=== PATIENT | female | born 1975 | race Two or more races ===

== ENCOUNTER → 2024-04-24 | Outpatient (CLI) | payer MEDICAID, SELFPAY ==
--- NOTE | 2024-04-24 11:00 | XR_ITS ---
Examination: Breast ultrasound, unilateral, right Date and time of exam: April 24, 2024 1040 hours INDICATIONS: Mammogram January 05, 2024 6 mm focal asymmetry upper outer right breast Technique: Real-time lara scale ultrasonographic imaging performed right breast including all 4 quadrants as well as nipple retroareolar and axillary region. Findings: No cystic or solid mass IMPRESSION: BI-RADS Category 1: Negative study
--- NOTE | 2024-04-24 11:30 | XR_ITS ---
Examination: Diagnostic digital mammography, unilateral, right Computer aided detection 3-D breast Tomosynthesis, unilateral Date and time of exam: April 24, 2019 5:11 AM INDICATIONS: Mammogram January 05, 2024 6 mm focal asymmetry outer right breast Technique: Nonmagnified MLO, CC views of the right breast have been obtained, reconstructed from 3-D Tomosynthesis images. R2 computer aided detection program utilized for evaluation of suspicious masses and/or abnormal calcifications. 3-D Tomosynthesis images obtained. Findings: Scattered areas of fibroglandular density No suspicious mass on the spot compression views is demonstrated Impression: BI-RADS category 2: Benign findings Return to yearly follow-up mammography
== END | disposition home or self-care (01) ==
PROVIDERS: PCP Family Medicine; Referring Provider Family Medicine; Visit Provider Family Medicine
DX: R92.321 Mammographic fibroglandular density, right breast (principal); N64.89 Other specified disorders of breast
CPT/HCPCS: 76641; 77061; 77065; G0279

== ENCOUNTER 2024-05-02 07:55 | Day surgery (SDC) | payer MEDICAID, SELFPAY ==
[2024-04-28 13:28] VITALS: BMI 44.5
[2024-05-02] VITALS (17 sets, daily range): BP systolic 112–211; BP diastolic 57–109; PULSE 51–104; RESP 12–25; TEMP 36.2–36.6; O2SAT 94–100; BMI 44.5
[2024-05-02] MEDS: SODIUM CHLORIDE 0.9% 100 ML IV (10:21)
[2024-05-02] MEDS: fentaNYL CIT INJ 50 mCg/ML AMP 2ML (ASD USE ONLY) IV (10:28)
[2024-05-02] MEDS: MIDAZOLAM INJ 1 MG/ML VIAL 2 ML (ASD USE ONLY) 2 MG IV (10:28)
[2024-05-02] MEDS: DiphenhydrAMINE INJ 50 MG/ML VIAL 25 MG IV (10:29)
== END 2024-05-02 11:23 | disposition home or self-care (01) ==
PROVIDERS: PCP Family Medicine; Referring Provider Internal Medicine Gastroenterology; Visit Provider Internal Medicine Gastroenterology
PROC: (CPT 43239; principal; 2024-05-02 09:30)
PROC: 0DBE8ZX Excision of Large Intestine, Via Natural or Artificial Opening Endoscopic, Diagnostic (ICD-10-PCS; CPT 45380; 2024-05-02 09:30)
DX: K64.1 Second degree hemorrhoids (principal); E66.01 Morbid (severe) obesity due to excess calories; Z68.42 Body mass index [BMI] 45.0-49.9, adult; K29.50 Unspecified chronic gastritis without bleeding; K31.89 Other diseases of stomach and duodenum
CPT/HCPCS: 45380; 81025; A4217; A4649; J1200; J2250; J3010; J7050

== ENCOUNTER 2024-06-15 09:40 | Emergency (ER) | payer MEDICAID, SELFPAY ==
--- NOTE | 2024-06-15 | XR_ITS ---
Examination: MRI brain without intravenous contrast. Date and time of exam: June 15, 2024 at 1947 hours INDICATIONS: Onset dizziness and difficulty walking today weakness Technique: Multiple axial and sagittal images of the brain obtained. Siemens high-resolution 1.5 Roxanne short bore scanners utilized. Sagittal sections, T1-weighted, TR 500, TE 14, are performed. Axial sections proton-density and T2-weighted have been obtained. Inversion recovery axial images, TR 9, 260, TE 111, TI 2500. Diffusion weighted images, axial sections, TR 4800, TE 128, B value 1000 Axial sections, ADC map, TR 4800, TE 128 Findings: Enlargement of the sella turcica is not present. The optic chiasm and infundibular are not remarkable. Prepontine and interpeduncular cisterns are not enlarged. There is no localized enlargement of the medulla or danielito. Fourth ventricle and cerebellar tonsils appear normal in position. No subacute area of hemorrhage density is seen. Mass in the cerebellopontine angle region is not evident. Globes symmetrical. Orbital musculature including medial lateral rectus muscles do not exhibit abnormality. Diffusion-weighted images demonstrate no focus of restricted effusion. Increased white matter signal not seen Mass effect upon the ventricular system is not identified. Impression: Negative for acute hemorrhage, mass effect or midline shift. No acute infarct No MR findings diagnostic for demyelinating disease
[2024-06-15 09:41] VITALS: BMI 43.9
[2024-06-15 10:29] VITALS: BP 154/84; PULSE 57; RESP 18; TEMP 36.8; O2SAT 98; BMI 43.9
--- NOTE | 2024-06-15 10:40 | XR_ITS ---
Examination: CT brain head without contrast. 2-D sagittal coronal reconstructions Date and time of exam:June 15, 2024 1048 hours INDICATIONS: Dizziness high blood pressure today CTDI: vol (mGy):52.5 DLP: (mGycm):1039 Technique: Multiple CT axial sections of the brain have been obtained, 5 mm slice thickness. Contrast has not been administered. 2-D sagittal, coronal reconstructions have been obtained Low dose protocols were performed. One or more of the following dose reduction techniques were used; automated exposure control, adjustment of the mA and/or KV according to patient size, use of iterative reconstruction technique. Findings: No significant ventricular enlargement. Intra-axial or extra-axial hemorrhage density is not seen. No mass effect or midline shift Basal cisterns are not remarkable. Fourth ventricle is midline. Cranial vault intact. Impression: Negative for acute hemorrhage, mass effect or midline shift Advise clinical correlation and follow-up accordingly
--- NOTE | 2024-06-15 10:40 | XR_ITS ---
Examination: PA chest single view TECHNIQUE: Upright PA chest single view Exam date and time: June 15, 2024 1058 hours INDICATIONS: High blood pressure dizziness today FINDINGS: Mild enlargement left ventricle. No pneumonia or pulmonary edema. The osseous structures are intact IMPRESSION: Mild enlargement left ventricle
--- NOTE | 2024-06-15 10:41 | PD.EDRME ---
Rapid Medical Screening Exam RME Arrival date/time: 06/15/24 09:40 48-year-old female presents to the emergency department complaints of dizziness and chest pressure x 1 day. I have greeted and performed a focused initial assessment of this patient. Initial appropriate labs ordered at this time. A comprehensive ED assessment and evaluation of the patient and analysis of all test and completion of medical decision making process will be conducted by additional ED provider. Chief Complaint: Dizziness Time Seen by Provider: 06/15/24 10:04 Vital signs: Vital Signs Temperature 98.3 F 06/15/24 10:29 Pulse Rate 57 L 06/15/24 10:29 Respiratory Rate 18 06/15/24 10:29 Blood Pressure 154/84 H 06/15/24 10:29 Pulse Oximetry (%) 98 06/15/24 10:29 Oxygen Delivery Method Room Air 06/15/24 10:29
[2024-06-15 11:11] LABS: Basophils % (Auto) 0 % (0-2.5); Eosinophils # (Auto) 0.1 Thou/mm3 (0.0-0.5); Eosinophils % (Auto) 2 % (0-10); Hematocrit 40.7 % (36.0-46.0); Hemoglobin 14.2 g/dL (12.0-16.0); Immature Granulocytes % (Auto) 0 % (0-0); Immature Granulocytes Auto 0.02 Thou/mm3 (0.00-0.00); Lymphocytes # (Auto) 1.9 Thou/mm3 (1.0-4.8); Lymphocytes % (Auto) 35 % (10-50); Mean Corpuscular HGB Conc 34.9 g/dl (31.0-37.0); Mean Corpuscular Hemoglobin 30.4 pg (25.0-35.0); Mean Corpuscular Volume 87 fL (80-100); Monocytes # (Auto) 0.3 Thou/mm3 (0.0-0.8); Monocytes % (Auto) 6 % (0-12); Neutrophils # (Auto) 3.1 Thou/mm3 (1.8-7.7); Neutrophils % (Auto) 57 % (37-80); Nucleated Red Blood Cell % 0 /100 WBC (0); Platelet Count 238 Thou/mm3 (140-440); RDW Standard Deviation 39.8 fL (36.4-46.3); Red Blood Count 4.67 Miln/mm3 (4.00-5.20); White Blood Count 5.5 Thou/mm3 (3.6-11.0)
[2024-06-15 11:22] LABS: Prothrombin Time 10.9 Seconds (9.0-12.2)
[2024-06-15] MEDS: MECLIZINE HCL 25 MG TABLET PO (11:26)
[2024-06-15 11:30] LABS: Alanine Aminotransferase 34 U/L (10-49); Albumin, Serum 4.6 gm/dL (3.5-5.0); Albumin/Globulin Ratio 1.7 (1.2-2.2); Alkaline Phosphatase 94 U/L (46-116); Anion Gap 9 (7-16); Aspartate Amino Transferase 22 U/L (0-34); BUN/Creatinine Ratio 16 Ratio (12-20); Bilirubin,Total 1.2 mg/dL (0.3-1.2); Blood Urea Nitrogen 8 mg/dL (9-23); Calcium 9.3 mg/dL (8.3-10.6); Calcium (Corrected) 9.3 mg/dL (8.5-10.1); Carbon Dioxide 29.2 mMol/L (20.0-31.0); Chloride 102 mMol/L (98-107); Creatinine (Component) 0.5 mg/dL (0.6-1.3); Estimated Creatinine Clearance 146.4 mL/min (>60); Globulin 2.7 gm/dL (2.3-3.5); Glucose 111 mg/dL (74-106); Osmolality,Calculated 278 (275-295); Potassium 3.5 mMol/L (3.4-5.1); Sodium 140 mMol/L (136-145); Total Protein 7.3 gm/dL (5.7-8.2); Troponin I < 0.002 ng/mL (0.0-0.045); eGFR > 60 See Note
[2024-06-15 20:31] VITALS: BP 151/83; PULSE 60; RESP 16; TEMP 36.9; O2SAT 98
[2024-06-15 21:41] VITALS: BP 160/64; PULSE 53; RESP 18; TEMP 36.8; O2SAT 98
[2024-06-16 00:26] LABS: Collection Type, Urine Clean Catch
--- NOTE | 2024-06-16 00:40 | EDNOTE_ITS ---
ED Dizzyness RME/HPI General Chief Complaint: Dizziness Stated Complaint: HIGH BP, DIZZY Time Seen by Provider: 06/15/24 10:04 Arrival date/time: 06/15/24 09:40 RME / HPI RME / HPI Narrative: 06/15/24 09:40 48-year-old female presents to the emergency department complaints of dizziness and chest pressure x 1 day. I have greeted and performed a focused initial assessment of this patient. Initial appropriate labs ordered at this time. A comprehensive ED assessment and evaluation of the patient and analysis of all test and completion of medical decision making process will be conducted by additional ED provider. Dr. Fowler?s Main ED Evaluation: 48yo female with a history of HTN presents to the ED for a chief complaint of dizziness x 0700. Patient states she started having dizziness while she was at work. She states it continued to get worse, reporting her legs were weak and she was unable to walk due to having significant dizziness, so she came in for evaluation. She states she was having difficulty speaking, describing it as speaking more slowly than usual. She denies any falls or injuries. She denies any other associated symptoms. No known allergies. Related Data Home Medications ?Medication ?Instructions ?Recorded ?Confirmed losartan 100 mg tablet 100 mg PO DAILY 04/28/24 cholecalciferol (vitamin D3) 50 50 mcg PO QDAY 5 05/02/24 mcg (2,000 unit) capsule hydrochlorothiazide 25 mg tablet 25 mg PO QAM 05/02/24 05/02/24 Previous Rx's ?Medication ?Instructions ?Recorded meclizine 25 mg tablet 25 mg PO BID PRN dizziness # 20 tabs 06/16/24 Allergies Allergy/AdvReac Type Severity Reaction Status Date / Time No Known Allergies Allergy Verified 06/15/24 09:42 Review of Systems Review of Systems Systems Reviewed: All systems reviewed, normal except as documented Past Medical History Past Medical History NEUROLOGIC: Negative Neurological Disorders or Seizures CARDIAC: Positive Cardiac Disorders and Hypertension; Negative Congestive Heart Failure RESPIRATORY: Positive Sleep Apnea; Negative Respiratory Disorders or Chronic Obstructive Pulmonary Disease (COPD) GASTROINTESTINAL: Positive Gastrointestinal Disorders (FATTY LIVER, ENLARGED LIVER, ENLARGED SPLEEN) GENITOURINARY: Negative Genitourinary Disorders or Renal Disease MUSCULOSKELETAL: Negative Musculoskeletal Disorders ENDOCRINE: Negative Endocrine Disorders, Diabetes Mellitus Type 1 or Diabetes Mellitus Type 2 HEMATOLOGIC: Negative Blood Disorders OTHER HISTORY: Negative Autoimmune Disease, Blood Transfusions, Anesthesia Reactions or Cancer Surgical History SURGICAL: Positive Hysterectomy Social History SMOKING STATUS: Never smoker ED Exam Narrative Physical exam: GENERAL APPEARANCE: alert and oriented x 4, well-developed, well-nourished, no acute distress VITALS: All vitals were reviewed and the pulse ox is 95% on room air, which is normal according to my interpretation. HEENT: Normocephalic, atraumatic; pupils equal, round, reactive to light; EOMI; mild left horizontal nystagmus; mucous membranes pink, moist; oropharynx clear NECK: Supple LUNGS: CTABL; no wheezes, no rales, no rhonchi HEART: Regular rate, regular rhythm; normal S1, S2; no murmurs ABDOMEN: non distended; normal BS; soft, no tenderness, no guarding, no rebound; no masses, no organomegaly, no hernia BACK: no CVA tenderness EXTREMITIES: atraumatic; no edema NEUROLOGIC: awake; alert and oriented x4; cranial nerves II-XII grossly intact; no focal sensory or motor deficits; normal [id number], normal [id number] PSYCHIATRIC: appropriate mood and affect SKIN: warm, dry, normal color; no rashes Course Quality Measures none Orders Category Date Time Status Bedside Blood Glucose NOW Care 06/15/24 10:40 Completed 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 Care 06/16/24 00:47 Completed Continuous Pulse Oximetry NOW Care 06/16/24 00:47 Completed EKG (ED ONLY) *Do not use* NOW Care 06/15/24 10:40 Completed Insert IV NOW Care 06/16/24 00:47 Completed MRI Screening NOW Care 06/15/24 15:42 Completed Consult to Neurology / Tele-Neurology Routine Cons 06/16/24 00:[address] angio stroke protocol Stat Exams 06/16/24 00:[address] head/brain wo con Stat Exams 06/15/24 10:40 Completed EKG (ED Only) Stat Exams 06/15/24 10:40 Ordered MR head/brain wo con Stat Exams 06/15/24 Completed XR chest 1V portable Stat Exams 06/15/24 10:40 Completed CBC Stat Lab 06/15/24 11:02 Completed Comprehensive Metabolic Panel Stat Lab 06/15/24 11:02 Completed Drug Screen,Urine Stat Lab 06/16/24 00:01 Completed Prothrombin Time with INR Stat Lab 06/15/24 11:02 Completed Troponin I Stat Lab 06/15/24 11:02 Completed Urinalysis Stat Lab 06/16/24 00:01 Completed Meclizine HCl [Antivert] Med 06/15/24 10:39 Discontinued 25 mg PO X1 ONE Vital Signs Vital signs: Vital Signs Temperature 98.3 F 06/15/24 10:29 Pulse Rate 57 L 06/15/24 10:29 Respiratory Rate 18 06/15/24 10:29 Blood Pressure 154/84 H 06/15/24 10:29 Pulse Oximetry (%) 98 06/15/24 10:29 Oxygen Delivery Method Room Air 06/15/24 10:29 Dizziness MDM Narrative MDM Narrative:: Scribe Attestation: 06/16/24 - Inna Hill am scribing for and in the presence of Dr. Fowler. 0043: Attempted to call Dr. Gardner, neurologist, without any success. Patient data External records reviewed:: [facility] [place] (Per chart review, patient has no relevant previous ED visits to this facility.) Clinical information provided by:: patient Social determinants that could affect healthcare access:: none Patient has the following chronic illnesses:: HTN How is presenting disease/condition affected by chronic disease/condition?: exacerbated by Evaluation data The following diagnostics were reviewed and interpreted by me:: lab results, radiology exam(s) and EKG tracing(s) Lab and/or radiology exams considered but not ordered:: none Interpretation Summary: CBC is normal, PT and INR are normal, CMP is normal, Troponin is normal, UA is unremarkable, UDS is negative, according to my interpretation. EKG done at 1041, sinus bradycardia, rate of 50, left axis deviation, no ectopy, no acute ischeia, according to my interpretation. [facility] Report Signed Patient: DIONE CHRISTOPHER Record#: [id number] Birthdate: 1975 Age/Sex: 48 / F Location: [facility] Attending Dr: Ordering Physician: Gus ([facility] [place]Ann Marie Date of Service: 06/15/24 Procedure(s): XR chest 1V portable Accession Number(s): [id number] cc: Leonardo Sheikh MD; NO PRIMARY/FAMILY,PHYSICIAN; Gus MagallanesW[facility] [place] Sanders~ Examination: PA chest single view TECHNIQUE: Upright PA chest single view Exam date and time: June 15, 2024 1058 hours INDICATIONS: High blood pressure dizziness today FINDINGS: Mild enlargement left ventricle. No pneumonia or pulmonary edema. The osseous structures are intact IMPRESSION: Mild enlargement left ventricle Dictated By: Leonardo Sheikh MD Signed By: <Electronically signed by Leonardo Sheikh MD in OV> 06/15/24 1110 [facility] Signed Patient: DIONE CHRISTOPHER Record#: [id number] Birthdate: 1975 Age/Sex: 48 / F Location: [facility] Attending Dr: Ordering Physician: Gus MagallanesW[facility] [place] Date of Service: 06/15/24 Procedure(s): CT head/brain wo con Accession Number(s): [id number] cc: Leonardo Sheikh MD; NO PRIMARY/FAMILY,PHYSICIAN; Gus MagallanesW[facility] [place] Sanders~ Examination: CT brain head without contrast. 2-D sagittal coronal reconstructions Date and time of exam:June 15, 2024 1048 hours INDICATIONS: Dizziness high blood pressure today CTDI: vol (mGy):52.5 DLP: (mGycm):1039 Technique: Multiple CT axial sections of the brain have been obtained, 5 mm slice thickness. Contrast has not been administered. 2-D sagittal, coronal reconstructions have been obtained Low dose protocols were performed. One or more of the following dose reduction techniques were used; automated exposure control, adjustment of the mA and/or KV according to patient size, use of iterative reconstruction technique. Findings: No significant ventricular enlargement. Intra-axial or extra-axial hemorrhage density is not seen. No mass effect or midline shift Basal cisterns are not remarkable. Fourth ventricle is midline. Cranial vault intact. Impression: Negative for acute hemorrhage, mass effect or midline shift Advise clinical correlation and follow-up accordingly Dictated By: Leonardo Sheikh MD Signed By: <Electronically signed by Leonardo Sheikh MD in OV> 06/15/24 1113 [facility] Signed Patient: DIONE CHRISTOPHER Record#: [id number] Birthdate: 1975 Age/Sex: 48 / F Location: [facility] Attending Dr: Ordering Physician: Gayle ([facility])Dusty NP Date of Service: 06/15/24 Procedure(s): MR head/brain wo con Accession Number(s): [id number] cc: Gayle ([facility]),Dusty URBINA; Leonardo Sheikh MD; NO PRIMARY/FAMILY,PHYSICIAN~ Examination: MRI brain without intravenous contrast. Date and time of exam: June 15, 2024 at 1947 hours INDICATIONS: Onset dizziness and difficulty walking today weakness Technique: Multiple axial and sagittal images of the brain obtained. Siemens high-resolution 1.5 Roxanne short bore scanners utilized. Sagittal sections, T1-weighted, TR 500, TE 14, are performed. Axial sections proton-density and T2-weighted have been obtained. Inversion recovery axial images, TR 9, 260, TE 111, TI 2500. Diffusion weighted images, axial sections, TR 4800, TE 128, B value 1000 Axial sections, ADC map, TR 4800, TE 128 Findings: Enlargement of the sella turcica is not present. The optic chiasm and infundibular are not remarkable. Prepontine and interpeduncular cisterns are not enlarged. There is no localized enlargement of the medulla or danielito. Fourth ventricle and cerebellar tonsils appear normal in position. No subacute area of hemorrhage density is seen. Mass in the cerebellopontine angle region is not evident. Globes symmetrical. Orbital musculature including medial lateral rectus muscles do not exhibit abnormality. Diffusion-weighted images demonstrate no focus of restricted effusion. Increased white matter signal not seen Mass effect upon the ventricular system is not identified. Impression: Negative for acute hemorrhage, mass effect or midline shift. No acute infarct No MR findings diagnostic for demyelinating disease Dictated By: Leonardo Sheikh MD Signed By: <Electronically signed by Leonardo Sheikh MD in OV> 06/15/242056 Medications / Prescriptions Medications or Prescriptions considered but not ordered:: none Medication administrations:: Medication Administration History Discontinued Medications Meclizine HCl (Meclizine Hcl 25 Mg Tablet) 25 mg PO X1 ONE Stop: 06/15/24 10:40 Last Admin: 06/15/24 11:26 Dose: 25 mg Documented By: MARQUISE see above Consultations Consultation(s) initiated? (list below): Yes Consultation #1 (Physician, Specialty, Details): Discussed case with Dr. Carlos from teleneurology regarding consultation. Discussed patients ED course, exam findings, labs, and radiology results. States the patient has peripheral vertigo and that the patient does not need CTA head/neck. Time: 01:20 Diagnosis Dizziness Differential Diagnosis: other (peripheral vertigo, central vertigo, near syncope) Most likely diagnosis given after review of the tests above:: see clinical impression below Admission Indicated Admission indicated?: not indicated Admission Request Was there a request for admission?: No Disposition Plan Disposition Plan: Discharge Discharge Attestation Discharge Attestation: The patient and all family members were given an opportunity to ask questions and understood the discharge instructions. Discharge instructions specifically effects, indications for sooner follow up or return to the emergency department, and the expected course of current diagnosis. Patient condition: Stable Discharge Plan Plan Patient Disposition: HOME (Self Care) Disposition Comment: Stable for discharge home Patient condition on transfer: Stable Prescriptions/Referrals Prescriptions/Med Rec: New meclizine 25 mg tablet 25 mg PO BID PRN (Reason: dizziness) Qty: 20 0RF No Action losartan 100 mg tablet 100 mg PO DAILY Patient Comments: take 1 tablet by mouth once daily as directed hydrochlorothiazide 25 mg tablet 25 mg PO QAM cholecalciferol (vitamin D3) 50 mcg (2,000 unit) capsule 50 mcg PO QDAY Referrals: Felice Gardner MD [Physician] - In 1 week Problem List Clinical Impression: Episodic peripheral vertigo Patient/Caregiver Discharge Instructions Discharge Activity: activity as tolerated Education Materials: ED BPV Vertigo Additional Instructions: Please return to the emergency department if you have any worsening or any further medical problems and we will help you. Otherwise you should follow-up with your primary care doctor within the next several days. I have given you the information for Dr Gardner. She is our neurologist who is on-call for the emergency department tonight. Please give her office a call and make a follow-up appointment. I have called in a prescription for meclizine at your pharmacy. Meclizine is also called Antivert and you should take 1-2 tabs of that when you feel the sensation of dizziness again. Obviously if you have any difficulties such as speech problems or difficulty swallowing or facial droop or numbness anywhere you should come back to the ER right away Print Language: Ukrainian Stand Alone Forms: Jane Award Info., Patient Portal Info Letter
[2024-06-16 00:54] LABS: Bilirubin,Urine Negative (Negative); Blood,Urine Negative (Negative); Clarity,Urine Clear (Clear/Hazy); Color,Urine Yellow (Lt Yel-Yel); Glucose, Urine Negative (Negative); Ketones,Urine Negative (Negative); Leukocyte Esterase,Urine Negative (Negative); Nitrite,Urine Negative (Negative); Protein,Urine Trace (Neg - Trace); RBC,Urine 4 /hpf (0-3); Specific Gravity,Urine 1.031 (1.001-1.035); Squamous Epithelial Cell,Urine 1 /hpf (0-5); Urobilinogen,Urine Negative mg/dL (0.0-1.0); WBC,Urine 3 /hpf (0-5)
[2024-06-16 00:57] LABS: Amphetamine/Methamp Scrn,U Negative (Negative); Barbiturate Screen,Urine Negative (Negative); Benzodiazepines Screen,Urine Negative (Negative); Benzoylecgonine Screen, Ur Negative (Negative); Fentanyl Screen,Urine Negative (Negative); Opiate Screen,Urine Negative (Negative); THC Screen,Urine Negative (Negative)
[2024-06-16 01:00] VITALS: BP 147/90; PULSE 62; RESP 18; TEMP 36.6; O2SAT 95
--- NOTE | 2024-06-16 01:00 | PC.NURSE ---
Case # [id number] for [facility] neuro.
--- NOTE | 2024-06-16 01:12 | PC.NURSE ---
teleneuro dr dae crowley speaking with patient
--- NOTE | 2024-06-16 01:30 | PD.TNEURO ---
Tele Neuro Consultation Consultation Date 06/16/24 Most Recent Vital Signs Last Vital Signs Temp 98 F 06/16/24 01:00 Pulse 62 06/16/24 01:00 Resp 18 06/16/24 01:00 BP 147/90 H 06/16/24 01:00 Pulse Ox 95 06/16/24 01:00 O2 Del Method Room Air 06/16/24 01:00 Laboratory-Coagulation Panel PT 10.9 Seconds (9.0-12.2) 06/15/24 11:02 INR 1.0 (0.9-1.3) 06/15/24 11:02 Consultation Narrative [facility] TeleNeurology Consult Services Stat Consult Patient Name: Vandana CHRISTOPHER Date of : 1975 Identification Number: Date of Service: 06/16/2024 01:00:37 Diagnosis: ? H81.12 - Benign paroxysmal vertigo, left ear. Impression Possible benign paroxysmal positional vertigo (BPPV). Recommend initiation of Meclizine 25 mg TID as needed for 7 days, and outpatient vestibular therapy for ongoing symptom management. The clinical presentation is most consistent with a peripheral etiology given the positional trigger, lack of persistent neurologic deficits, normal MRI brain without contrast, and isolated horizontal nystagmus. No evidence to suggest posterior circulation stroke; Recommendations: Our recommendations are outlined below. Laboratory Studies : Lipid panel I ordered Hemoglobin A1c Nursing Recommendations : IV Fluids, avoid dextrose containing fluids, Maintain euglycemia Neuro checks q4 hrs x 24 hrs and then per shift Head of bed 30 degrees Continue with Telemetry Consultations : Recommend Speech therapy if failed dysphagia screen Physical therapy/Occupational therapy Advanced Imaging: CTA Head and Neck Completed. LVO:No Patient in not a candidate for [facility] Metrics: Dispatch Time: 06/16/2024 01:00:37 Callback Response Time: 06/16/2024 01:01:55 Primary Provider Notified of Diagnostic Impression and Management Plan on: 06/16/2024 01:29:12 CT HEAD: Reviewed no acute changes Chief Complaint: vertigo History of Present Illness: Patient is a 48 year old Female. 48-year-old female presented approximately 15 hours prior with acute onset vertigo upon transitioning from sitting to standing around 8:00 AM. She described associated dysarthria and unsteadiness to the point of being unable to ambulate independently. These symptoms have since significantly improved. On initial evaluation, she was noted to have leftward horizontal nystagmus; however, the remainder of the neurological examination was within normal limits, with no focal motor or sensory deficits, no limb ataxia, and intact cranial nerves. She received Meclizine (Antivert) in the ED with symptomatic relief. She has a known history of prior episodes of vertigo and a history of hypertension. Head CT showed no evidence of hemorrhage, and MRI brain without contrast was unremarkable. Given the atypical features and initial concern for central involvement, further recommendations regarding advanced imaging were requested. Past Medical History: ? There is no history of Diabetes Mellitus ? There is no history of Atrial Fibrillation ? There is no history of Stroke Medications: No Anticoagulant use No Antiplatelet use Reviewed EMR for current medications Allergies: Reviewed Social History: Patient Is: Single Smoking: No Alcohol Use: No Drug Use: No Family History: There is no family history of premature cerebrovascular disease pertinent to this consultation ROS : 14 Points Review of Systems was performed and was negative except mentioned in HPI. Past Surgical History: There Is No Surgical History Contributory To Today?s Visit Examination: BP(147/90), Pulse(62), 1A: Level of Consciousness - Alert; keenly responsive + 0 1B: Ask Month and Age - Both Questions Right + 0 1C: Blink Eyes & Squeeze Hands - Performs Both Tasks + 0 2: Test Horizontal Extraocular Movements - Normal + 0 3: Test Visual Fraire - No Visual Loss + 0 4: Test Facial Palsy (Use Grimace if Obtunded) - Normal symmetry + 0 5A: Test Left Arm Motor Drift - No Drift for 10 Seconds + 0 5B: Test Right Arm Motor Drift - No Drift for 10 Seconds + 0 6A: Test Left Leg Motor Drift - No Drift for 5 Seconds + 0 6B: Test Right Leg Motor Drift - No Drift for 5 Seconds + 0 7: Test Limb Ataxia (FNF/Heel-Kruger) - No Ataxia + 0 8: Test Sensation - Normal; No sensory loss + 0 9: Test Language/Aphasia - Normal; No aphasia + 0 10: Test Dysarthria - Normal + 0 11: Test Extinction/Inattention - No abnormality + 0 NIHSS Score: 0 Spoke with : Dr Mena This consult was conducted in real time using interactive audio and video technology. Patient was informed of the technology being used for this visit and agreed to proceed. Patient located in hospital and provider located at home/office setting. Patient is being evaluated for possible acute neurologic impairment and high probability of imminent or life - threatening deterioration.I spent total of 35 minutes providing care to this patient, including time for face to face visit via telemedicine, review of medical records, imaging studies and discussion of findings with providers, the patient and / or family. Dr Gregorio [facility] For Inpatient follow-up with [facility] physician please call [facility] at . As we are not an outpatient service for any post hospital discharge needs please contact the hospital for assistance. If you have any questions for the [facility] physicians or need to reconsult for clinical or diagnostic changes please contact us via [facility] at .
== END 2024-06-16 01:42 | disposition home or self-care (01) ==
PROVIDERS: Nurse Practitioner Primary Care; Emergency Provider Emergency Medicine
DX: H81.399 Other peripheral vertigo, unspecified ear (principal); I10 Essential (primary) hypertension
CPT/HCPCS: 36415; 70450; 70551; 71045; 80053; 80307; 81001; 84484; 85025; 85610; 93005; 99284; A9270

== ENCOUNTER → 2024-09-20 | Outpatient (CLI) | payer MEDICAID, SELFPAY ==
--- NOTE | 2024-09-20 14:00 | XR_ITS ---
Examination: MRI right foot, without contrast Date and time of exam: September 20, 2024 1541 hours INDICATIONS: Palpable lumps pop in bottom of the foot one year Technique: Multiple axial sagittal and coronal images of the right foot have been obtained with the Siemens high-resolution 1.5 Roxanne MRI scanner. Images obtained include T2-weighted fat-suppressed sagittal sections, TR 3500, TE 46, T2 weighted coronal fat suppressed images, TR 3050, TE 84, T2-weighted transverse fat suppressed images, TR 3260, TE 63, proton density transverse images, TR 4720 TE 46, and T1 weighted coronal images, TR 560, TE 13. Findings: Adequate marrow signal bones of the foot Plantar fascia is not thickened Negative for sinus Tarsi syndrome. No occult fracture or avascular necrosis. Flexor extensor tendons intact No soft tissue cystic or solid mass dorsal and plantar aspect of the foot IMPRESSION: No cystic or solid soft tissue masses involving the foot Consider ultrasound soft tissue follow-up of the foot to assess for lipomatous or other masses
--- NOTE | 2024-09-20 14:45 | XR_ITS ---
Examination: MRI left, without contrast Date and time of exam: September 20, 2024 1515 hours INDICATIONS: Pain at the top of the foot one year with lumps numbness and paresthesias tingling Technique: Multiple axial sagittal and coronal images of the left foot have been obtained with the Siemens high-resolution 1.5 Roxanne MRI scanner. Images obtained include T2-weighted fat-suppressed sagittal sections, TR 3500, TE 46, T2 weighted coronal fat suppressed images, TR 3050, TE 84, T2-weighted transverse fat suppressed images, TR 3260, TE 63, proton density transverse images, TR 4720 TE 46, and T1 weighted coronal images, TR 560, TE 13. Findings: Normal marrow signal bones of the ankle and foot Achilles tendon and plantar fascia intact Negative for sinus Tarsi syndrome Intact flexor and extensor tendons No soft tissue cystic or solid masses, specifically no ganglion cyst noted No asymmetric effusions in the joint spaces No avascular necrosis IMPRESSION: No cystic or solid soft tissue masses Recommend ultrasound of any soft tissue masses in the foot follow-up
== END | disposition home or self-care (01) ==
LOC: SMRI 13:54
PROVIDERS: PCP Family Medicine; Referring Provider Podiatrist; Visit Provider Podiatrist
DX: M67.471 Ganglion, right ankle and foot (principal); M67.472 Ganglion, left ankle and foot
CPT/HCPCS: 73718